=== PATIENT | male | born 2000 | race Caucasian/White ===

== ENCOUNTER 2022-03-25 20:01 | Emergency (ER) | payer MEDICAID ==
[~2022-03-25] VITALS: Ht 165.1 cm; Wt 136.1 kg
[2022-03-25 20:11] VITALS: BP_SYST 130
--- NOTE | 2022-03-25 20:16 | NUR ---
PATIENT BIB WITH MOTHER COMPLAINING OF COUGH X 2 DAYS WITH SHORTNESS OF BREATH TODAY. PATIENT HAS HISTORY OF ASTHMA WITH NO NEBULIZER OR INHALER. PATIENT IS SPEAKING FULL SENTENCES AND O2 SATURATION IS 99% RA. NO ACUTE DISTRESS NOTED.
--- NOTE | 2022-03-25 20:25 | NUR ---
COVID AND INFLUENZA SWAB COLLECTED AND SENT TO LAB.
--- NOTE | 2022-03-25 21:02 | NUR ---
ER at bedside examining patient.
[2022-03-25] MEDS ORDERED: POLY119P3 PO (21:32)
[2022-03-25] MEDS ORDERED: MAGN296S70 PO (21:32)
[2022-03-25] MEDS ORDERED: ALBMDI INH (21:35)
[2022-03-25 21:50] VITALS: BP_SYST 122
--- NOTE | 2022-03-25 21:50 | NUR ---
Patient given written and verbal discharge instructions and verbalizes understanding. ER MD discussed with patient the results and treatment provided. Patient in stable condition. ID arm band removed. Rx of ALBUTEROL given. Patient educated on pain management and to follow up with PMD. Pain Scale 0/10 Opportunity for questions provided and answered. Medication side effect fact sheet provided.
== END 2022-03-25 21:50 | disposition home or self-care (01) ==
LOC: SED 20:01
DX: J06.9 Acute upper respiratory infection, unspecified (principal); R05.9 Cough, unspecified; R06.02 Shortness of breath; J45.909 Unspecified asthma, uncomplicated; F12.90 Cannabis use, unspecified, uncomplicated; Z79.899 Other long term (current) drug therapy; Z20.822 Contact with and (suspected) exposure to COVID-19
CPT/HCPCS: 36415; 99283

== ENCOUNTER 2022-08-27 21:37 | Emergency (ER) | payer MEDICAID ==
[~2022-08-27] VITALS: Ht 165.1 cm; Wt 136.1 kg
[~2022-08-27 21:37] MED LIST: ALBMDI INH
[2022-08-27 22:03] VITALS: BP_SYST 128
[2022-08-27] MEDS ORDERED: MYCOLOG15O TP (23:02)
== END 2022-08-27 23:08 | disposition home or self-care (01) ==
LOC: SED 21:37
DX: B35.6 Tinea cruris (principal); R21 Rash and other nonspecific skin eruption; J45.909 Unspecified asthma, uncomplicated; Z79.899 Other long term (current) drug therapy
CPT/HCPCS: 82962; 99283

== ENCOUNTER 2023-06-30 23:49 | Emergency (ER) | payer MEDICAID ==
[~2023-06-30] VITALS: Ht 165.1 cm; Wt 145.1 kg
[~2023-06-30 23:49] MED LIST changes: +MYCOLOG15O TP
[2023-06-30 23:53] VITALS: BP_SYST 163; PULSE 85; RESP 20; TEMP 98.8; O2SAT 98
[2023-07-01] MEDS ORDERED: IPRATROPIUM/ALBUTEROL SULFATE 3 ML AMPUL.NEB (DUONEB) INH ONE (00:30)
[2023-07-01] MEDS: predniSONE 20 MG TABLET PO ONE (00:33)
[2023-07-01] MEDS ORDERED: BUDE6.9H INH (01:11)
[2023-07-01] MEDS ORDERED: ALBU90AE INH (01:11)
[2023-07-01] MEDS ORDERED: METH4TAB17 PO (01:11)
[2023-07-01 01:20] VITALS: BP_SYST 159; PULSE 88; RESP 20; TEMP 97.4; O2SAT 95
== END 2023-07-01 01:20 | disposition home or self-care (01) ==
LOC: SED 23:49
DX: J45.901 Unspecified asthma with (acute) exacerbation (principal); F12.90 Cannabis use, unspecified, uncomplicated; R06.02 Shortness of breath; R07.9 Chest pain, unspecified; Z79.899 Other long term (current) drug therapy
CPT/HCPCS: 99283; 71046; 94640; J7512